=== PATIENT | female | born 1950 | race Caucasian/White ===

== ENCOUNTER 2022-02-18 13:23 | Emergency (ER) | payer OTHER ==
[~2022-02-18] VITALS: Ht 154.9 cm; Wt 145.6 kg
[2022-02-18 14:00] VITALS: BP_SYST 172
--- NOTE | 2022-02-18 15:45 | NUR ---
Pt presents to the ER Bib self with CC of Pain to the left shoulder radiating to the brachial and lower back. Pt skin intact, aaox4, Pt states history of osteoarthritis and being seen by PCP prescribed skeletal muscle relaxants with little relief. Pt states due for a cortisone injection on March 03 and would like pain management in the ER today.
--- NOTE | 2022-02-18 16:00 | NUR ---
MD bedside with patient for MSE.
[2022-02-18] MEDS ORDERED: KETOROLAC TROMETHAMINE 30 MG VIAL IM ONE (17:45)
[2022-02-18] MEDS ORDERED: GABAPENTIN 300 MG CAPSULE PO ONE (17:45)
[2022-02-18] MEDS ORDERED: predniSONE 20 MG TABLET PO ONE (17:45)
--- NOTE | 2022-02-18 18:00 | NUR ---
[facility] and requests copy of x-ray of shoulder for PCP .
[2022-02-18] MEDS ORDERED: NEU300 PO (19:29)
[2022-02-18] MEDS ORDERED: PRED20TA PO (19:29)
--- NOTE | 2022-02-18 20:14 | NUR ---
Left shoulder sling applied to left shoulder.Pt tolerated well.
--- NOTE | 2022-02-18 20:15 | NUR ---
Patient given written and verbal discharge instructions and verbalizes understanding. ER MD discussed with patient the results and treatment provided. Patient in stable condition. ID arm band removed. Rx of Gabapentin given. Patient educated on pain management and to follow up with PMD. Pain Scale 3/10. Opportunity for questions provided and answered. Medication side effect fact sheet provided.
[2022-02-18 20:18] VITALS: BP_SYST 110
== END 2022-02-18 20:19 | disposition home or self-care (01) ==
LOC: SED 13:23
DX: M25.512 Pain in left shoulder (principal); Z88.2 Allergy status to sulfonamides; Z79.899 Other long term (current) drug therapy
CPT/HCPCS: 99283; 93005; 73030; 96372; J7512; J1885